=== PATIENT | female | born 1995 | race Caucasian/White ===

== ENCOUNTER → 2022-09-29 11:16 | Outpatient (CLI) | payer MEDICAID, SELFPAY ==
[2022-09-29 14:55] LABS: Barbiturates Screen,Urine Negative ng/ml (<200)
[2022-09-29 14:56] LABS: Benzodiazepines Screen,Urine Negative ng/ml (<200)
[2022-09-29 14:57] LABS: Cannabinoid Screen,Urine Negative ng/ml (<50); Methadone Screen,Urine Negative ng/ml (<300)
[2022-09-29 14:58] LABS: Cocaine Screen,Urine Negative ng/ml (<300)
[2022-09-29 14:59] LABS: Opiate Screen,Urine Negative ng/ml (<300); Phencyclidine Screen,Urine Negative ng/ml (<25)
[2022-09-29 15:27] LABS: Amphetamine/Metha Screen,Urine Positive ng/ml (<1000)
== END ==
PROVIDERS: PCP Emergency Medicine; Visit Provider Emergency Medicine
DX: G62.9 Polyneuropathy, unspecified (principal)
CPT/HCPCS: 80305

== ENCOUNTER → 2022-11-28 13:49 | Outpatient (CLI) | payer MEDICAID, SELFPAY ==
[2022-11-28 16:38] LABS: Amphetamine/Metha Screen,Urine Positive ng/ml (<1000)
[2022-11-28 16:39] LABS: Barbiturates Screen,Urine Negative ng/ml (<200)
[2022-11-28 16:40] LABS: Benzodiazepines Screen,Urine Positive ng/ml (<200)
[2022-11-28 16:41] LABS: Cannabinoid Screen,Urine Negative ng/ml (<50)
[2022-11-28 16:42] LABS: Cocaine Screen,Urine Negative ng/ml (<300)
[2022-11-28 16:43] LABS: Methadone Screen,Urine Negative ng/ml (<300); Opiate Screen,Urine Positive ng/ml (<300)
[2022-11-28 16:44] LABS: Phencyclidine Screen,Urine Negative ng/ml (<25)
== END ==
PROVIDERS: PCP Emergency Medicine; Visit Provider Emergency Medicine
DX: G62.9 Polyneuropathy, unspecified (principal)
CPT/HCPCS: 80305

== ENCOUNTER → 2022-12-03 23:30 | Outpatient (CLI) | payer MEDICAID, SELFPAY ==
[2022-12-03 19:35] LABS: Amphetamine/Metha Screen,Urine Negative ng/ml (<1000)
[2022-12-03 19:36] LABS: Barbiturates Screen,Urine Negative ng/ml (<200)
[2022-12-03 19:37] LABS: Benzodiazepines Screen,Urine Negative ng/ml (<200); Cannabinoid Screen,Urine Negative ng/ml (<50)
[2022-12-03 19:38] LABS: Cocaine Screen,Urine Negative ng/ml (<300); Methadone Screen,Urine Negative ng/ml (<300)
[2022-12-03 19:39] LABS: Opiate Screen,Urine Negative ng/ml (<300)
[2022-12-03 19:40] LABS: Phencyclidine Screen,Urine Negative ng/ml (<25)
== END ==
PROVIDERS: PCP Emergency Medicine; Visit Provider Emergency Medicine
DX: Z79.899 Other long term (current) drug therapy (principal)
CPT/HCPCS: 80305

== ENCOUNTER → 2022-12-08 23:47 | Outpatient (CLI) | payer MEDICAID, SELFPAY ==
[2022-12-08 19:06] LABS: Benzodiazepines Screen,Urine Positive ng/ml (<200)
[2022-12-08 19:07] LABS: Amphetamine/Metha Screen,Urine Negative ng/ml (<1000)
[2022-12-08 19:08] LABS: Barbiturates Screen,Urine Negative ng/ml (<200); Cannabinoid Screen,Urine Negative ng/ml (<50)
[2022-12-08 19:09] LABS: Cocaine Screen,Urine Negative ng/ml (<300)
[2022-12-08 19:10] LABS: Methadone Screen,Urine Negative ng/ml (<300); Opiate Screen,Urine Negative ng/ml (<300)
[2022-12-08 19:11] LABS: Phencyclidine Screen,Urine Negative ng/ml (<25)
== END ==
PROVIDERS: PCP Emergency Medicine; Visit Provider Emergency Medicine
DX: Z79.899 Other long term (current) drug therapy (principal)
CPT/HCPCS: 80305

== ENCOUNTER → 2022-12-23 23:49 | Outpatient (CLI) | payer MEDICAID, SELFPAY ==
[2022-12-23 18:42] LABS: Barbiturates Screen,Urine Negative ng/ml (<200)
[2022-12-23 18:43] LABS: Cannabinoid Screen,Urine Negative ng/ml (<50); Cocaine Screen,Urine Negative ng/ml (<300)
[2022-12-23 18:44] LABS: Methadone Screen,Urine Negative ng/ml (<300)
[2022-12-23 18:45] LABS: Opiate Screen,Urine Negative ng/ml (<300)
[2022-12-23 18:47] LABS: Phencyclidine Screen,Urine Negative ng/ml (<25)
[2022-12-23 18:53] LABS: Benzodiazepines Screen,Urine Positive ng/ml (<200)
[2022-12-23 18:59] LABS: Amphetamine/Metha Screen,Urine Positive ng/ml (<1000)
== END ==
PROVIDERS: PCP Emergency Medicine; Visit Provider Emergency Medicine
DX: Z79.899 Other long term (current) drug therapy (principal)
CPT/HCPCS: 80305

== ENCOUNTER → 2023-02-25 23:10 | Outpatient (CLI) | payer MEDICAID, SELFPAY ==
[2023-02-25 22:25] LABS: Barbiturates Screen,Urine Negative ng/ml (<200)
[2023-02-25 22:28] LABS: Benzodiazepines Screen,Urine Negative ng/ml (<200)
[2023-02-25 22:29] LABS: Cannabinoid Screen,Urine Negative ng/ml (<50); Cocaine Screen,Urine Negative ng/ml (<300)
[2023-02-25 22:31] LABS: Methadone Screen,Urine Negative ng/ml (<300); Opiate Screen,Urine Negative ng/ml (<300)
[2023-02-25 22:32] LABS: Phencyclidine Screen,Urine Negative ng/ml (<25)
[2023-03-05 08:19] LABS: Amphetamine Positive (.); Amphetamine (GC/MS) >3000 ng/mL (Cutoff=500); Amphetamines Positive (.); Methamphetamine Positive (.); Methamphetamine (GC/MS) >3000 ng/mL (Cutoff=500)
== END ==
PROVIDERS: PCP Emergency Medicine; Visit Provider Emergency Medicine
DX: Z79.899 Other long term (current) drug therapy (principal)
CPT/HCPCS: 80305; 80324

== ENCOUNTER → 2023-07-08 23:25 | Outpatient (CLI) | payer MEDICAID, SELFPAY ==
[2023-07-08 20:29] LABS: Amphetamine/Metha Screen,Urine Negative ng/ml (<1000); Benzodiazepines Screen,Urine Negative ng/ml (<200)
[2023-07-08 20:30] LABS: Barbiturates Screen,Urine Negative ng/ml (<200)
[2023-07-08 20:31] LABS: Cannabinoid Screen,Urine Negative ng/ml (<50); Methadone Screen,Urine Negative ng/ml (<300)
[2023-07-08 20:32] LABS: Cocaine Screen,Urine Negative ng/ml (<300)
[2023-07-08 20:33] LABS: Opiate Screen,Urine Negative ng/ml (<300); Phencyclidine Screen,Urine Negative ng/ml (<25)
== END ==
PROVIDERS: PCP Emergency Medicine; Visit Provider Nurse Practitioner Family
DX: F41.9 Anxiety disorder, unspecified (principal)
CPT/HCPCS: 80305

== ENCOUNTER 2023-08-15 11:26 | Inpatient (IN) | payer MEDICAID, SELFPAY ==
[2023-08-15 11:49] VITALS: BMI 28.0
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
[2023-08-15 12:00] VITALS: BP 122/68; PULSE 70; RESP 18; TEMP 37.1; O2SAT 100; BMI 28.0
[2023-08-15 12:39] LABS: Basophils % 0.6 % (0.1-2.0); Eosinophils # 0.1 K/mm3 (0.0-0.4); Eosinophils % 1.1 % (0.1-12.0); Hematocrit 32.5 % (37.0-47.0); Hemoglobin 11.3 g/dL (12.2-16.2); Lymphocytes # 1.5 K/mm3 (0.7-4.5); Lymphocytes % 19.8 % (10-50); Mean Corpuscular HGB Conc 34.6 g/dL (31.8-35.4); Mean Corpuscular Hemoglobin 31.3 pg (27.0-31.2); Mean Corpuscular Volume 90.3 fl (81-99); Mean Platelet Volume 8.8 fl (7.4-10.4); Monocytes # 0.4 K/mm3 (0.1-1.0); Monocytes % 5.3 % (1.7-9.3); Neutrophils # 5.4 K/mm3 (1.8-7.8); Neutrophils % 73.3 % (37.0-80.0); Platelet Count 169 K/mm3 (142-424); Red Cell Distribution Width 13.7 % (11.5-17.5); White Blood Count 7.4 K/mm3 (4.8-10.8)
--- NOTE | 2023-08-15 12:41 | HMH.PHAINT1 ---
Pharmacy Intervention Comments: MEDICATION RECONCILIATION COMPLETE USING LIST FROM MOST RECENT MD OFFICE VISIT (VISITED LUISANA'S OFFICE 07/08/23), PER JUSTIN REPORT, PERCOCET, KLONOPIN, AND GABAPENTIN HAVE NOT BEEN FILLED SINCE JANUARY 23, 2023.
[2023-08-15 14:56] LABS: Barbiturates Screen,Urine Negative ng/ml (<200)
[2023-08-15 14:57] LABS: Benzodiazepines Screen,Urine Negative ng/ml (<200); Cannabinoid Screen,Urine Negative ng/ml (<50)
[2023-08-15 14:58] LABS: Cocaine Screen,Urine Negative ng/ml (<300); Methadone Screen,Urine Negative ng/ml (<300)
[2023-08-15 14:59] LABS: Opiate Screen,Urine Negative ng/ml (<300)
[2023-08-15 15:00] LABS: Phencyclidine Screen,Urine Negative ng/ml (<25)
[2023-08-15 22:12] VITALS: BP 136/79; PULSE 82; RESP 18; TEMP 36.6; O2SAT 100
[2023-08-16 01:40] VITALS: BP 124/91; PULSE 98; RESP 18; TEMP 36.5
[2023-08-16 07:36] LABS: Hematocrit 28.5 % (37.0-47.0); Hemoglobin 10.2 g/dL (12.2-16.2)
[2023-08-16 08:16] LABS: HCV Ab Non Reactive (Non Reactive); HIV Screen 4th Generation wRfx Non Reactive (Non Reactive); Hepatitis B Surface Antigen Negative (Negative)
--- NOTE | 2023-08-16 08:17 | PC.NURSE ---
Report made on case- Spoke with Lela Mclaughlin Web ID # [id number]- Reported on patient delivery at home, no care. Positive for amphetamines and baby positive. Infant withdrawing from drugs. History of Meth, heroin and incarceration during . Reported that [employer] worker would be on contact soon.
[2023-08-16 09:00] VITALS: BP 127/67; PULSE 100; RESP 18; TEMP 36.9; O2SAT 100
[2023-08-16 09:18] LABS: Rubella Antibodies, IgG 2.15 index (Immune >0.99)
--- NOTE | 2023-08-16 09:39 | PC.NURSE ---
Patient left at this time against medical advice. This RN went over all warning signs to watch out for . This RN educated patient and made sure she was aware of consequences of this. Patient v/u and left.
[2023-08-16 10:19] LABS: Rapid Plasma Reagin Ab Titer Non Reactive titer (NonRea<1:1)
[2023-08-19 16:16] LABS: Amphetamine Positive (.); Amphetamine (GC/MS) >3000 ng/mL (Cutoff=500); Amphetamines Positive (.); Methamphetamine Positive (.); Methamphetamine (GC/MS) >3000 ng/mL (Cutoff=500)
== END 2023-08-16 09:39 | disposition short-term general hospital (02) | DRG 776 ==
PROVIDERS: Admitting Provider Obstetrics & Gynecology; PCP Emergency Medicine; Visit Provider Obstetrics & Gynecology
DX: Z39.0 Encounter for care and examination of mother immediately after delivery (principal); F17.210 Nicotine dependence, cigarettes, uncomplicated; F19.90 Other psychoactive substance use, unspecified, uncomplicated; F41.9 Anxiety disorder, unspecified; G43.909 Migraine, unspecified, not intractable, without status migrainosus
CPT/HCPCS: 36415; 80305; 80324; 85014; 85018; 85025; 86593; 86762; 86850; 87340; 88307; 94761; G0283